=== PATIENT | female | born 1935 | race African-American/Black ===

== ENCOUNTER 2022-05-26 20:20 | Emergency (ER) | payer MEDICARE ==
[~2022-05-26] VITALS: Ht 165.1 cm; Wt 68.0 kg
[~2022-05-26 20:20] MED LIST: ASPI-1497 MT; ATOR40TA70 MT; LOSA50TA41 MT; METF-414 MT
[2022-05-26] MEDS ORDERED: ASPIRIN 81MG TABLET PO ONE (21:15)
[2022-05-26 21:28] LABS: BASOPHILS % 0.6 % (0.0-2.0); EOSINOPHILS % 3.4 % (0.0-5.0); LYMPHOCYTES % 27.6 % (20.0-50.0); MEAN CORPUSCULAR HEMOGLOBIN 29.3 pg (28.0-32.0); MEAN CORPUSCULAR VOLUME 87.7 fL (81.0-99.0); MEAN PLATELET VOLUME 8.2 fl (7.4-10.4); MONOCYTES % 8.8 % (2.0-8.0); NEUTROPHILS % 59.6 % (40.0-76.0); PLATELET 192 x1000/uL (130-400); RED BLOOD CELL COUNT 4.11 mill/uL (4.2-5.4); RED CELL DISTRIBUTION WIDTH 13.4 % (11.6-14.6)
[2022-05-26 21:31] LABS: CHLORIDE 106 mEq/L (98-107)
[2022-05-26 23:13] LABS: BG BASE EXCESS -1.7 mmol/L (-2.0-2.0); BG CARBOXYHEMOGLOBIN 0.3 % (0.5-1.5); BG DEOXYHEMOGLOBIN 2.5 % (0.0-5.0); BG FRACTION INSPIRED OXYGEN 21; BG HCO3 ACT 22.5 mmol/L (22.0-26.0); BG METHEMOGLOBIN 0.2 % (0.0-1.5); BG OXYGEN SATURATION 97.5 % (92.0-98.5); BG PCO2 36.7 mmHg (35.0-45.0); BG PH 7.406 (7.350-7.450); BG PO2 102.2 mmHg (75.0-100.0); BG TOTAL HEMOGLOBIN 12.4 g/dL (12.0-18.0); BG VENT MODE ROOM AIR
[2022-05-27] VITALS: BP 148/72
== END 2022-05-27 00:30 | disposition home or self-care (01) ==
LOC: ER 20:20
DX: R06.02 Shortness of breath (principal); N28.9 Disorder of kidney and ureter, unspecified; E11.9 Type 2 diabetes mellitus without complications; I10 Essential (primary) hypertension
CPT/HCPCS: 36415; 36600; 71045; 80053; 82375; 82805; 83880; 84484; 85025; 93005; 99285

== ENCOUNTER 2022-12-22 10:44 | Inpatient (IN) | payer MEDICARE ==
[~2022-12-22] VITALS: Ht 162.6 cm; Wt 68.0 kg
[2022-12-22] MEDS ORDERED: NITROGLYCERIN OINT 1GM/INCH UDPKT TD ONE (12:00)
[2022-12-22] MEDS ORDERED: ASPIRIN 81MG TABLET PO ONE (12:00)
[2022-12-22 13:14] LABS: BASOPHILS % 0.3 % (0.0-2.0); EOSINOPHILS % 0.7 % (0.0-5.0); HEMATOCRIT. 36.5 % (36.0-48.0); HEMOGLOBIN. 12.4 g/dL (12.0-16.0); LYMPHOCYTES % 20.4 % (20.0-50.0); MEAN CORPUSCULAR HEMOGLOBIN 30.2 pg (28.0-32.0); MEAN CORPUSCULAR VOLUME 89.3 fL (81.0-99.0); MEAN PLATELET VOLUME 7.9 fl (7.4-10.4); MONOCYTES % 7.6 % (2.0-8.0); PLATELET 205 x1000/uL (130-400); RED BLOOD CELL COUNT 4.09 mill/uL (4.2-5.4); RED CELL DISTRIBUTION WIDTH 13.3 % (11.6-14.6)
[2022-12-22 13:19] LABS: CHLORIDE 105 mEq/L (98-107)
[2022-12-22] MEDS ORDERED: ASPIRIN 81MG TABLET PO NR (14:15)
[2022-12-22 19:15] VITALS: BP 128/71
[2022-12-22] MEDS ORDERED: DEXTROSE 50% WATER 50ML SYRINGE IV PRN (19:30)
[2022-12-22] MEDS ORDERED: ZOLPIDEM TARTRATE 5MG TABLET PO PRN (19:30)
[2022-12-22 20:00] VITALS: BP 120/71
[2022-12-22] MEDS: BLOOD SUGAR DIAGNOSTIC STRIP TEST SCH (21:00)
[2022-12-22] MEDS: INSULIN LISPRO 100 UNITS/ML SUBCUT SCH (21:00)
[2022-12-22] MEDS: HEPARIN 5000 UNITS/ML VIAL SUBCUT SCH (21:00)
[2022-12-22] MEDS ORDERED: ATORVASTATIN CALCIUM 40MG TABLET PO SCH (21:00)
[2022-12-23] VITALS: BP 121/61
[2022-12-23 04:00] VITALS: BP 121/61
[2022-12-23] MEDS: BLOOD SUGAR DIAGNOSTIC STRIP TEST SCH (06:35)
[2022-12-23 06:41] LABS: BASOPHILS % 0.5 % (0.0-2.0); HEMATOCRIT. 34.1 % (36.0-48.0); HEMOGLOBIN. 11.7 g/dL (12.0-16.0); LYMPHOCYTES % 38.7 % (20.0-50.0); MEAN CORPUSCULAR HEMOGLOBIN 30.7 pg (28.0-32.0); MEAN CORPUSCULAR VOLUME 89.3 fL (81.0-99.0); MONOCYTES % 8.3 % (2.0-8.0); NEUTROPHILS % 50.5 % (40.0-76.0); PLATELET 203 x1000/uL (130-400); RED BLOOD CELL COUNT 3.81 mill/uL (4.2-5.4); RED CELL DISTRIBUTION WIDTH 13.3 % (11.6-14.6)
[2022-12-23] MEDS: INSULIN LISPRO 100 UNITS/ML SUBCUT SCH (08:10)
[2022-12-23] MEDS ORDERED: LOSARTAN POTASSIUM 50 MG TABLET PO SCH (09:00)
[2022-12-23] MEDS ORDERED: ASPIRIN 81MG TABLET PO SCH (09:00)
[2022-12-23] MEDS: HEPARIN 5000 UNITS/ML VIAL SUBCUT SCH (09:44)
[2022-12-23 12:00] VITALS: BP 161/82
[2022-12-23 13:04] LABS: CHLORIDE 106 mEq/L (98-107)
[2022-12-23 13:32] LABS: HDL CHOLESTEROL 56 mg/dL (40-59); LDL CHOLESTEROL 53 mg/dL (5-100)
[2022-12-23 15:12] VITALS: BP 161/82
== END 2022-12-23 17:43 | disposition home or self-care (01) | DRG 206 ==
LOC: ER 11:52 → EDBEDREQTM 14:14 → 7WST 15:52 → EDBEDREQTM 15:54 → EDBEDREQ 15:54 → ENRESERV 17:49
PROVIDERS: ADMIT Internal Medicine Pulmonary Disease; ATTEND Internal Medicine Pulmonary Disease
DX: M94.0 Chondrocostal junction syndrome [Tietze] (principal); E11.9 Type 2 diabetes mellitus without complications; I10 Essential (primary) hypertension; E78.5 Hyperlipidemia, unspecified; Z90.710 Acquired absence of both cervix and uterus; Z79.82 Long term (current) use of aspirin
CPT/HCPCS: 36415; 71045; 80048; 80053; 80061; 82962; 83036; 83880; 84484; 85025; 93306; 99285; J1644